=== PATIENT | female | born 1970 | race African-American/Black ===

== ENCOUNTER 2024-11-04 15:53 | Emergency (ER) | payer BC ==
[~2024-11-04] VITALS: Ht 154.9 cm; Wt 118.0 kg
[2024-11-04] VITALS (9 sets, daily range): BP systolic 147–169; BP diastolic 86–104
[~2024-11-04 15:53] MED LIST: AMOXICILLIN875 MG PO; ASPIRIN81 MG OR; BAYER LOW81 MG OR; BENTYL20 MG OR; CIPRO500 MG OR; CIPROFLOXACN500 MG PO; CRESTOR10 MG PO; FISH OIL1000 MG PO; GLIPIZIDE5 M1 PO; HYDROXYZ HCL25 MG PO; LANTUS100 MG/ML; LANTUS100 MG/ML SC; LIPITOR10 MG OR; LISINOPRIL40 MG PO; METFORMIN1000 MG PO; NORVASC10 M1 PO; TRIAMCINOLON0.11 EX
[2024-11-04] MEDS ORDERED: ONDANSETRON HCl 4 MG/2 ML SDV IV ONE (16:30)
[2024-11-04] MEDS ORDERED: SODIUM CHLORIDE 0.9% 1,000 ML IV ONE (16:30)
[2024-11-04 17:03] LABS: BASO% 0.3 % (0-3); EOS% 1.6 % (0-8); HEMATOCRIT 28.2 % (37.0-47.0); HEMOGLOBIN 8.5 g/dl (12.0-16.0); LYMPH% 28.5 % (15-41); MEAN CELL VOLUME 91.9 fL CALC (80.0-100.0); MEAN CORPUSCULAR HGB 27.7 pG CALC (26.0-32.0); MEAN CORPUSCULAR HGB CONC 30.1 g/dL CAL (32.0-36.0); MONO% 6.7 % (2-13); NEUT# 4.02 thou/uL (2.00-7.15); NEUT% 62.9 % (42-76); RED BLOOD COUNT 3.07 mill/uL (4.20-5.60); RED CELL DISTRI WIDTH 16.1 % (11.5-15.5)
[2024-11-04 17:11] LABS: ALBUMIN 4.1 g/dL (3.2-5.0); CREATININE 2.4 mg/dL (0.5-1.0)
[2024-11-04 17:20] LABS: BILIRUBIN, TOTAL 0.6 mg/dL (0.02-1.3)
[2024-11-04 17:38] LABS: POTASSIUM 4.9 mmol/l (3.5-5.1)
[2024-11-04 17:42] LABS: URINE BILIRUBIN - DIPSTICK Negative (NEGATIVE); URINE BLOOD DIPSTICK Trace-intact (NEGATIVE); URINE COLOR Yellow; URINE GLUCOSE - DIPSTICK >=1000 mg/dL (NEGATIVE); URINE KETONE Negative (NEGATIVE); URINE LEUK ESTERASE Negative (NEGATIVE); URINE NITRITE - DIPSTICK Negative (Negative); URINE PROTEIN - DIPSTICK >=300 mg/dL (NEG-TRACE); URINE SPECIFIC GRAVITY 1.015; URINE UROBILINOGEN - DIPSTICK 0.2 E.U./dL (0.2)
[2024-11-04 17:45] LABS: URINE BACTERIA FEW hpf; URINE RBC 0-2 RBC/hpf (0-5); URINE SQUAMOUS EPITHELIAL CELL FEW EPI/hpf (0-FEW)
[2024-11-04] MEDS ORDERED: MORPHINE SULFATE 4 MG/ML VIAL IV STA (18:12)
[2024-11-04] MEDS ORDERED: TRAMADOL HYDROC50 M1 PO ×2 (18:53→19:21)
== END 2024-11-04 19:20 | disposition home or self-care (01) | DRG 694 ==
LOC: ED 15:53
PROVIDERS: Nurse Practitioner
DX: N20.0 Calculus of kidney (principal); I10 Essential (primary) hypertension; E11.9 Type 2 diabetes mellitus without complications; Z79.84 Long term (current) use of oral hypoglycemic drugs
CPT/HCPCS: J2405